=== PATIENT | female | born 1955 | race Caucasian/White ===

== ENCOUNTER 2018-02-27 23:06 | Emergency (ER) | payer OTHER ==
[~2018-02-27] VITALS: Ht 157.5 cm; Wt 51.3 kg
[2018-02-27 23:13] VITALS: BP 151/88
--- NOTE | 2018-02-27 23:16 | ED HAND/WRIST INJURY COMPLAINT ---
History of Present Illness General Chief Complaint: Hand or Wrist Injury Stated Complaint: INFECTED INDEX FINGER ON RT HAND FROM MARCELLUS KEN Source: patient, old records Exam Limitations: no limitations Vital Signs & Intake/Output Vital Signs & Intake/Output Vital Signs Date Time Temp Pulse Resp B/P B/P Pulse O2 O2 Flow FiO2 Mean Ox Delivery Rate 02/27 2313 96.9 64 18 151/88 98 Room Air ED Intake and Output 02/28 0000 02/27 1200 Intake Total 0 Output Total Balance 0 Intake, Oral 0 Patient 113 lb Weight Weight Reported by Patient Measurement Method Allergies Coded Allergies: Penicillins (Intermediate, RASH 02/27/18) Sulfa (Sulfonamide Antibiotics) (Intermediate, RASH 02/27/18) Reconcile Medications Cephalexin (Keflex) 500 MG CAPSULE 1 CAP PO TID cellulitis Triage Note: PT TO ER C/C REDDNESS TO RIGHT INDEX FINGER X 1 DAY S/P BEING "PRICKED BY MARCELLUS KEN". Triage Nurses Notes Reviewed? yes Occurred: yesterday Duration: day(s): (1), constant Timing: recent history Injury Environment: home Severity: mild Severity Numbers: 3 Pain/Injury Location: Right: 2nd finger. No Modifying Factors: none Associated Symptoms: swelling, redness HPI: 62-year-old female no medical history presents to ER for evaluation. She states that yesterday while doing gardening outside she was accidentally pricked by a marcellus ken thorn.she has been soaking her finger however states she is having worsening redness to the finger. no difficulty with rom, no fever, chills. no other finger injury. her last tetanusis unknown (Cedric Delarosa) Past History Travel History Traveled to [place] past 21 day No Medical History Any Pertinent Medical History? none Surgical History Surgical History: none Psychosocial History What is your primary language [place] Tobacco Use: Never used Family History Hx Contributory? No (Cedric Delarosa) Review of Systems Review of Systems Constitutional: Reports: see HPI. Comments Review of systems: See HPI, All other systems negative. Constitutional, no chills no fever, HEENT: no sore throat n Cardiovascular: No chest pain Skin: rash Respiratory: no cough GI: No nausea no vomiting, Muscle skeletal: No joint pain, no back pain, no neck pain, Neurologic: , no headache Heme/endocrine: No bruising (Cedric Delarosa) Physical Exam Physical Exam General Appearance: well developed/nourished, no apparent distress, alert Hand Left: normal inspection, normal range of motion Hand Right: 2nd finger (erythema dorsal finger) Comments: Well-developed well-nourished patient in no apparent distress. HEENT: Atraumatic, extraocular motion intact Neck: Supple, FROM Back: FROM Respiratory: No respiratory distress. Patient speaking in full complete sentences Extremities: full range of motion there is an area of erythema over the dorsal aspect of the right second finger over the middle phalanx, small superficial abrasion noted at the site of the injury, capillary refills within normal limits the patient has full range of motion of the finger Neuro: awake, alert, and oriented to person, place and time. There were no obvious focal neurologic abnormalities. Skin: Warm & dry;No appreciable rash on exposed skin Psych: Mood affect normal, normal memory normal judgment. (Cedric Delarosa) Progress Differential Diagnosis: cellulitis, paronychia, septic arthritis, sprain, tenosynovitis Plan of Care: Current Medications Sig/Lissy Start time Last Medication Dose Stop Time Status Admin Tetanus/Diphtheria 0.5 ML ONCE ONE 02/27 2330 UNVr Toxoids Adsorbed 02/27 2331 (Decavac) There is no nailbed involvement I discussed with the patient plan of care will send her home with Keflex I advised to continue with warm soaks tetanus IM ordered return precautions were discussed at length she'll follow-up with her primary care physician this week cleared for discharge (Cedric Delarosa) Departure Departure Time of Disposition: 2321 Disposition: HOME OR SELF CARE Condition: Stable Clinical Impression Primary Impression: Cellulitis Referrals: Calvin JUÁREZ,Jewel Fonseca Additional Instructions: Keflex as directed. Warm soaks as you've been doing Tylenol Motrin for pain, follow-up with your primary care physician. Return to the emergency room with any concerns or signs of worsening infection: Streaking redness up your hand fever chills pain or difficulty with range of motion of finger or any other concerns Departure Forms: Customer Survey General Discharge Information Prescriptions: Current Visit Scripts Cephalexin (Keflex) 1 CAP PO TID #21 CAP (Cedric Delarosa) PA/NETWORK DESIGN ARCHITECT Co-Sign Statement Statement: ED Attending supervision documentation- [] I saw and evaluated the patient. I have also reviewed all the pertinent lab results and diagnostic results. I agree with the findings and the plan of care as documented in the PA's/NETWORK DESIGN ARCHITECT's documentation. [x] I have reviewed the ED Record and agree with the PA's/NETWORK DESIGN ARCHITECT's documentation. [] Additions or exceptions (if any) to the PAs/NETWORK DESIGN ARCHITECT's note and plan are summarized below: [] (Con JUÁREZ,Jason Guerrero)
[2018-02-27] MEDS ORDERED: KEFLEX500 M1 PO (23:23)
== END 2018-02-27 23:28 ==
LOC: ERH 23:06
DX: L03.011 Cellulitis of right finger (principal)
CPT/HCPCS: 90471; 90714